=== PATIENT | male | born 1995 | race Two or more races ===

== ENCOUNTER 2021-11-07 19:04 | Emergency (ER) | payer BC, OTHER ==
[~2021-11-07] VITALS: Ht 185.4 cm; Wt 77.1 kg
[2021-11-07 19:08] VITALS: BP 168/95
== END 2021-11-08 03:24 | disposition home or self-care (01) ==
LOC: ER 19:08
DX: S43.102A Unspecified dislocation of left acromioclavicular joint, initial encounter (principal); X58.XXXA Exposure to other specified factors, initial encounter; Y93.89 Activity, other specified; Y92.89 Other specified places as the place of occurrence of the external cause; Y99.8 Other external cause status
CPT/HCPCS: 73030